=== PATIENT | male | born 1975 | race Caucasian/White ===

== ENCOUNTER 2017-04-23 10:52 | Emergency (ER) | payer BC ==
[~2017-04-23] VITALS: Ht 185.4 cm; Wt 85.0 kg
[2017-04-23 11:01] VITALS: BP 162/90; PULSE 87; RESP 16; TEMP 98.8; O2SAT 98
[2017-04-23 11:38] LABS: BILIRUBIN, URINE NEG (NEG); GLUCOSE,URINE NEG (NEG); KETONE, URINE NEG (NEG); NITRITE,URINE NEG (NEG); PH, URINE 6.5 (5.0-8.5); URINE LEUKOCYTE ESTERASE MOD (NEG)
[2017-04-23 11:47] LABS: BLOOD, URINE TRACE (NEG)
[2017-04-23 11:49] LABS: AMORPHOUS SEDIMENT, URINE FEW; SQUAMOUS EPITHELIAL CELL URINE 0-5 /hpf (0-5); WHITE BLOOD CELL CLUMPS FEW
--- NOTE | 2017-04-23 11:55 | PD ---
HPI Chief Complaint: Complaint Time Seen by Provider: 11:30 Travel History International Travel<30 days: No Contact w/Intl Traveler<30days: No Traveled to known affect area: No History of Present Illness HPI 41-year-old male here with urinary frequency, urgency, mild dysuria 2 days. He denies fever or chills. No flank pain. No penile discharge or lesions. He is not concerned about STD. PFSH Past Medical History Medical History: Denies Significant Hx Arthritis: No Asthma: No Autoimmune Disease: No Heart Rhythm Problems: No Cancer: No Cardiovascular Problems: No High Cholesterol: No Chemotherapy: No Chest Pain: No Congestive Heart Failure: No COPD: No Cerebrovascular Accident: No Diabetes: No Diminished Hearing: No Endocrine: No Gastrointestinal Disorders: Yes (ESOPHAGEAL DILATATION) GERD: No Genitourinary: No Headaches: Yes Hiatal Hernia: No Immune Disorder: No Kidney Stones: No Musculoskeletal: No Neurologic: No Psychiatric: No Reproductive: No Respiratory: No Migraines: No Radiation Therapy: No Renal Failure: No Seizures: No Sickle Cell Disease: No Sleep Apnea: No Thyroid Disease: No Ulcer: No Tetanus Vaccination: > 5 Years Influenza Vaccination: No Past Surgical History Abdominal Surgery: No AICD: No Arteriovenous Shunt: No Cardiac Surgery: No Ear Surgery: No Endocrine Surgery: No Eye Surgery: No Genitourinary Surgery: No Gynecologic Surgery: No Insulin Pump: No Joint Replacement: No Oral Surgery: No Pacemaker: No Thoracic Surgery: No Other Surgery: Yes (ESOPHIGIAL STRECHING) Social History Alcohol Use: Yes (6-7 BEERS DAILY) Tobacco Use: No Substance Use: No Allergies-Medications (Allergen,Severity, Reaction): Uncoded Allergies: NUTS (Allergy, Mild, THROAT AND TONGUE SWELLING, 04/23/17) Reported Meds & Prescriptions Reported Meds & Active Scripts Active No Active Prescriptions or Reported Medications Review of Systems Except as stated in HPI: all other systems reviewed are Neg General / Constitutional: No: Fever Eyes: No: Visual changes HENT: No: Headaches Cardiovascular: No: Chest Pain or Discomfort Respiratory: No: Shortness of Breath Gastrointestinal: No: Abdominal Pain Genitourinary: Positive: Urgency, Frequency, Dysuria Physical Exam Narrative GENERAL: Alert male. Well-appearing. SKIN: Warm and dry. HEAD: Normocephalic. NECK: Supple, trachea midline. CARDIOVASCULAR: Regular rate and rhythm RESPIRATORY: Breath sounds equal bilaterally. No accessory muscle use. GASTROINTESTINAL: Abdomen soft, non-tender, nondistended. BACK: No CVA tenderness. Data Data Last Documented VS Vital Signs Date Time Temp Pulse Resp B/P (MAP) Pulse Ox O2 Delivery O2 Flow Rate FiO2 04/23/17 11:01 98.8 87 16 162/90 (114) 98 Orders Orders Urinalysis - C+S If Indicated (04/23/17 11:10) Urine Culture (04/23/17 11:10) Labs Laboratory Tests Test 04/23/17 11:10 Urine Collection Type CLEAN CATCH Urine Color NONE Urine Turbidity CLEAR Urine pH 6.5 Urine Specific [place] 1.002 Urine Protein NEG mg/dL Urine Glucose (UA) NEG mg/dL Urine Ketones NEG mg/dL Urine Occult Blood TRACE Urine Nitrite NEG Urine Bilirubin NEG Urine Leukocyte Esterase MOD Urine WBC 20-24 /hpf Urine WBC Clumps FEW Urine Squamous Epithelial Cells 0-5 /hpf Urine Amorphous Sediment FEW Microscopic Urinalysis Comment CULTURE INDICATED Urine Collection Time 1115 MDM Medical Decision Making Medical Screen Exam Complete: Yes Emergency Medical Condition: Yes Interpretation(s) UA: Moderate leukocytes, WBC 20-24, WBC clumps present, trace blood Differential Diagnosis UTI, pyelonephritis, urethritis Narrative Course Male with urinary frequency, urgency, dysuria 2 days. He is well-appearing. Vital signs are stable. UA is positive for infection. Patient will be treated for UTI Diagnosis Primary Impression: UTI (urinary tract infection) Qualified Codes: N30.01 - Acute cystitis with hematuria Referrals: Primary Care Physician Additional Instructions: Antibiotics as prescribed. Stay well hydrated by drinking plenty of fluids. Scripts Nitrofurantoin Monohydrate Macrocrystals (Macrobid) 100 Mg Capsule 100 MG PO BID for Infection for 7 Days, #14 CAP 0 Refills Prov: Nany Castillo 04/23/17 Disposition: 01 DISCHARGE HOME Condition: Stable Nany Castillo Apr 23, 2017 11:55
[2017-04-23] MEDS ORDERED: MACR100C2 PO (12:03)
== END 2017-04-23 12:08 | disposition home or self-care (01) ==
LOC: PHEFT 10:52
DX: N39.0 Urinary tract infection, site not specified (principal); B96.89 Other specified bacterial agents as the cause of diseases classified elsewhere; R51 Headache
CPT/HCPCS: 81001; 87086; 99283